=== PATIENT | female | born 1930 | race Caucasian/White ===

== ENCOUNTER 2017-03-09 03:15 | Inpatient (IN) | payer MEDICARE, BC ==
[2017-03-09] MEDS ORDERED: Sodium Chloride 0.9% 10 ML Syringe FLUSH PRN ×2 (03:19→15:18)
[2017-03-09] MEDS ORDERED: Diltiazem 25 MG/5 ML SDV IVPUSH ONE ×3 (03:38→04:18)
--- NOTE | 2017-03-09 03:39 | EDM.PDOC ---
ED HPI GENERAL MEDICAL PROBLEM - General Chief Complaint: Cardiovascular Problem Stated Complaint: roly ambulance Time Seen by Provider: 03/09/17 03:19 Source of Information: Reports: Patient, Family, RN Notes Reviewed - History of Present Illness INITIAL COMMENTS - FREE TEXT/NARRATIVE: 86-year-old female has been route in by ambulance for evaluation of chest discomfort. This started about 2 hours ago. She describes this as an anterior achy discomfort without radiation. The pain is somewhat worse with a deep respiration. She also has had a cough for about 2 days, nonproductive. She does have history of hypertension. No known history of coronary artery disease. She is not diabetic. She has no known history of asthma or COPD. She just flew out 2 -1/2 days ago from the [facility] to be here for upcoming of a brother that unexpectedly last week. Chest Pain Score (Numeric/FACES): 4 - Related Data Allergies Allergy/AdvReac Type Severity Reaction Status Date / Time No Known Allergies Allergy Verified 03/09/17 03:28 Home Meds: Home Meds Aspirin [Adult Low Dose Aspirin EC] 81 mg PO DAILY 03/09/17 [History] Rosuvastatin [Crestor] 20 mg PO DAILY 03/09/17 [History] Valsartan 320 mg PO DAILY 03/09/17 [History] amLODIPine [Norvasc] 10 mg PO DAILY 03/09/17 [History] ED ROS GENERAL - Review of Systems Review Of Systems: See Below Constitutional: Denies: Fever, Chills, Diaphoresis HEENT: Denies: Sinus Problem, Throat Pain Respiratory: Reports: Pleuritic Chest Pain, Cough. Denies: Shortness of Breath , Sputum Cardiovascular: Reports: Chest Pain (Now almost gone). Denies: Palpitations GI/Abdominal: Denies: Abdominal Pain, Nausea, Vomiting Musculoskeletal: Denies: Neck Pain, Shoulder Pain, Back Pain Skin: Reports: No Symptoms Neurological: Denies: Dizziness, Weakness ED EXAM, GENERAL - Physical Exam Exam: See Below General Appearance: Alert, No Apparent Distress Eye Exam: Bilateral Eye: PERRL Throat/Mouth: Normal Inspection, Normal Oropharynx Head: Atraumatic Neck: Supple, Full Range of Motion, Other Respiratory/Chest: No Respiratory Distress (No JVD), Lungs Clear, Normal Breath Sounds Cardiovascular: Irregularly Irregular GI/Abdominal: Soft, Non-Tender. No: Guarding Extremities: No: Pedal Edema, Leg Pain, Increased Warmth, Redness Neurological: Alert, Oriented, No Motor/Sensory Deficits Skin Exam: Warm, Dry, Normal Color EKG INTERPRETATION EKG Date: 03/09/17 Rhythm: a-fib Rate (beats/min): 124 [place]: normal P-wave: present QRS: normal ST-T: normal Course - Vital Signs Last Recorded V/S: Last Vital Signs Temp 98.5 F 03/09/17 03:22 Pulse 93 03/09/17 05:24 Resp 17 03/09/17 03:22 BP 122/83 03/09/17 05:24 Pulse Ox 96 03/09/17 05:24 - Orders/Labs/Meds Orders: Active Orders 24 hr Category Date Time Status EKG 12 Lead [EKG Documentation Completion] [RC] STAT Care 03/09/17 03:20 Active Peripheral IV Care [RC] . DIRECTED Care 03/09/17 03:20 Active Chest 1V Frontal [CR] Stat Exams 03/09/17 03:20 Taken Diltiazem 125 MG in Normal Saline @ 5 MG/HR(100ml) Med 03/09/17 07:15 Ordered Diltiazem 125 mg Sodium Chloride 0.9% [Normal Saline] 100 ml IV TITRATE Sodium Chloride 0.9% [Saline Flush] Med 03/09/17 03:19 Active 10 ml FLUSH ASDIRECTED PRN Peripheral IV Insertion Adult [OM.PC] Stat Oth 03/09/17 03:20 Ordered Medication Orders Diltiazem HCl 125 mg/ Sodium (Chloride) 125 mls @ 5 mls/hr IV TITRATE CARMEN; 5 MG /HR PRN Reason: Protocol Sodium Chloride (Saline Flush) 10 ml FLUSH ASDIRECTED PRN PRN Reason: Keep Vein Open Last Admin: 03/09/17 03:45 Dose: 10 ml Labs: Laboratory Tests 03/09/17 03/09/17 03/09/17 Range/Units 03:31 03:31 03:31 WBC 8.14 (3.98-10.04) K/mm3 RBC 3.97 L (3.98-5.22) M/mm3 Hgb 11.2 (11.2-15.7) gm/L Hct 34.0 L (34.1-44.9) % MCV 85.6 (79.4-94.8) fl MCH 28.2 (25.6-32.2) pg MCHC 32.9 (32.2-35.5) g/dl RDW Std Deviation 41.6 (36.4-46.3) fL Plt Count 188 (182-369) K/mm3 MPV 9.6 (9.4-12.3) fl Neut % (Auto) 77.4 H (34.0-71.1) % Lymph % (Auto) 10.2 L (19.3-51.7) % [place] % (Auto) 9.8 (4.7-12.5) % Eos % (Auto) 2.0 (0.7-5.8) Baso % (Auto) 0.4 (0.1-1.2) % Neut # (Auto) 6.30 H (1.56-6.13) K/mm3 Lymph # (Auto) 0.83 L (1.18-3.74) K/mm3 [place] # (Auto) 0.80 H (0.24-0.36) K/mm3 Eos # (Auto) 0.16 (0.04-0.36) K/mm3 Baso # (Auto) 0.03 (0.01-0.08) K/mm3 PT (8.0-13.0) SECONDS INR APTT (22-36) SECONDS Sodium 139 (136-145) mEq/L Potassium 3.6 (3.5-5.1) mEq/L Chloride 103 (98-107) mEq/L Carbon Dioxide 24 (21-32) mEq/L Anion Gap 15.6 H (5-15) BUN 20 H (7-18) mg/dL Creatinine 1.2 H (0.55-1.02) mg/dL Est Cr Clr Drug Dosing 30.92 mL/min Estimated GFR (MDRD) 42 (>60) mL/min BUN/Creatinine Ratio 16.7 (14-18) Glucose 111 (83-115) mg/dL Calcium 8.4 L (8.5-10.1) mg/dL Total Bilirubin 0.5 (0.2-1.0) mg/dL AST 20 (15-37) U/L ALT 22 (14-59) U/L Alkaline Phosphatase 83 (46-116) U/L Troponin I < 0.017 (0.00-0.056) ng/mL C-Reactive Protein (<1.0) mg/dL B-Natriuretic Peptide 555 H (0-100) pg/mL Total Protein 7.1 (6.4-8.2) g/dl Albumin 3.0 L (3.4-5.0) g/dl Globulin 4.1 gm/dL Albumin/Globulin Ratio 0.7 L (1-2) 03/09/17 03/09/17 03/09/17 Range/Units 03:31 03:31 03:31 WBC (3.98-10.04) K/mm3 RBC (3.98-5.22) M/mm3 Hgb (11.2-15.7) gm/L Hct (34.1-44.9) % MCV (79.4-94.8) fl MCH (25.6-32.2) pg MCHC (32.2-35.5) g/dl RDW Std Deviation (36.4-46.3) fL Plt Count (182-369) K/mm3 MPV (9.4-12.3) fl Neut % (Auto) (34.0-71.1) % Lymph % (Auto) (19.3-51.7) % [place] % (Auto) (4.7-12.5) % Eos % (Auto) (0.7-5.8) Baso % (Auto) (0.1-1.2) % Neut # (Auto) (1.56-6.13) K/mm3 Lymph # (Auto) (1.18-3.74) K/mm3 [place] # (Auto) (0.24-0.36) K/mm3 Eos # (Auto) (0.04-0.36) K/mm3 Baso # (Auto) (0.01-0.08) K/mm3 PT 10.5 (8.0-13.0) SECONDS INR 0.97 APTT 27 (22-36) SECONDS Sodium (136-145) mEq/L Potassium (3.5-5.1) mEq/L Chloride (98-107) mEq/L Carbon Dioxide (21-32) mEq/L Anion Gap (5-15) BUN (7-18) mg/dL Creatinine (0.55-1.02) mg/dL Est Cr Clr Drug Dosing mL/min Estimated GFR (MDRD) (>60) mL/min BUN/Creatinine Ratio (14-18) Glucose (83-115) mg/dL Calcium (8.5-10.1) mg/dL Total Bilirubin (0.2-1.0) mg/dL AST (15-37) U/L ALT (14-59) U/L Alkaline Phosphatase (46-116) U/L Troponin I (0.00-0.056) ng/mL C-Reactive Protein 4.3 H* (<1.0) mg/dL B-Natriuretic Peptide (0-100) pg/mL Total Protein (6.4-8.2) g/dl Albumin (3.4-5.0) g/dl Globulin gm/dL Albumin/Globulin Ratio (1-2) // Range/Units 05:40 WBC (3.98-10.04) K/mm3 RBC (3.98-5.22) M/mm3 Hgb (11.2-15.7) gm/L Hct (34.1-44.9) % MCV (79.4-94.8) fl MCH (25.6-32.2) pg MCHC (32.2-35.5) g/dl RDW Std Deviation (36.4-46.3) fL Plt Count (182-369) K/mm3 MPV (9.4-12.3) fl Neut % (Auto) (34.0-71.1) % Lymph % (Auto) (19.3-51.7) % [place] % (Auto) (4.7-12.5) % Eos % (Auto) (0.7-5.8) Baso % (Auto) (0.1-1.2) % Neut # (Auto) (1.56-6.13) K/mm3 Lymph # (Auto) (1.18-3.74) K/mm3 [place] # (Auto) (0.24-0.36) K/mm3 Eos # (Auto) (0.04-0.36) K/mm3 Baso # (Auto) (0.01-0.08) K/mm3 PT (8.0-13.0) SECONDS INR APTT (22-36) SECONDS Sodium (136-145) mEq/L Potassium (3.5-5.1) mEq/L Chloride (98-107) mEq/L Carbon Dioxide (21-32) mEq/L Anion Gap (5-15) BUN (7-18) mg/dL Creatinine (0.55-1.02) mg/dL Est Cr Clr Drug Dosing mL/min Estimated GFR (MDRD) (>60) mL/min BUN/Creatinine Ratio (14-18) Glucose (83-115) mg/dL Calcium (8.5-10.1) mg/dL Total Bilirubin (0.2-1.0) mg/dL AST (15-37) U/L ALT (14-59) U/L Alkaline Phosphatase (46-116) U/L Troponin I 0.025 (0.00-0.056) ng/mL C-Reactive Protein (<1.0) mg/dL B-Natriuretic Peptide (0-100) pg/mL Total Protein (6.4-8.2) g/dl Albumin (3.4-5.0) g/dl Globulin gm/dL Albumin/Globulin Ratio (1-2) Meds: Medications Generic Name Dose Route Start Last Admin Trade Name Freq PRN Reason Stop Dose Admin Diltiazem HCl 125 mg/ Sodium 125 mls @ 5 mls/hr 03/09/17 07:15 Chloride IV TITRATE CARMEN Protocol 5 MG/HR Sodium Chloride 10 ml 03/09/17 03:19 03/09/17 03:45 Saline Flush FLUSH 10 ml ASDIRECTED PRN Administration Keep Vein Open Discontinued Medications Generic Name Dose Route Start Last Admin Trade Name Freq PRN Reason Stop Dose Admin Diltiazem HCl 5 mg 03/09/17 03:38 03/09/17 03:44 Diltiazem IVPUSH 03/09/17 03:39 5 mg ONETIME ONE Administration Diltiazem HCl 5 mg 03/09/17 04:02 03/09/17 04:24 Diltiazem IVPUSH 03/09/17 04:03 5 mg ONETIME ONE Administration Diltiazem HCl 5 mg 03/09/17 04:18 03/09/17 05:16 Diltiazem IVPUSH 03/09/17 04:19 5 mg ONETIME ONE Administration Diltiazem HCl 60 mg 03/09/17 04:42 03/09/17 05:20 Cardizem PO 03/09/17 04:43 60 mg ONETIME ONE Administration Furosemide 20 mg 03/09/17 04:22 03/09/17 04:35 Lasix IVPUSH 03/09/17 04:23 20 mg NOW ONE Administration - Re-Assessments/Exams Free Text/Narrative Re-Assessment/Exam: 03/09/17 04:30. Patient does feel better, her chest discomfort is about gone. She states she still does feel slight anterior chest discomfort with deep breathing. She does have mild left sternal tenderness on exam. Her chest x-ray did show very slight pulmonary congestion. BNP mildly elevated at 555. Troponin was negative. We've given Lasix 20 mg IV. Have given a couple of doses of diltiazem 5 mg IV. I have been cautious with dosage considering that she has been on Norvasc for hypertension. This Has brought her rate down to the 100-105 range. We have no ICU beds available at this time so have not started a diltiazem drip. We have given diltiazem 60 mg orally. We'll do a repeat troponin after 2 hours. 03/09/17 06:45. Repeat show has gone up mildly to 0.025. This may be demand ischemia but does strengthen the case for admission. As I visit with her and her family there are multiple home related events today that are probably not in her best interest to attend with the new onset atrial fib, mild CHF. We'll start her on the diltiazem drip for continued rate control, serial enzymes and careful monitoring. She does needs [facility] criteria for inpatient status. Departure - Departure Time of Disposition: 07:00 Disposition: Admitted As Inpatient 65 Condition: fair Clinical Impression: Atrial fibrillation with rapid ventricular response Congestive heart failure Qualifiers: Congestive heart failure type: unspecified congestive heart failure type Congestive heart failure chronicity: acute Qualified Code(s): I50.9 - Heart failure, unspecified Forms: ED Department Discharge ED Communication - Discussed Case With (1) Discussed Case With (1): Admitting Provider (Dr. Garcia, decision to admit at about 07:00.) - My Orders Last 24 Hours: My Active Orders 03/09/17 03:19 Sodium Chloride 0.9% [Saline Flush] 10 ml FLUSH ASDIRECTED PRN 03/09/17 03:20 EKG 12 Lead [EKG Documentation Completion] [RC] STAT Peripheral IV Care [RC] . DIRECTED Chest 1V Frontal [CR] Stat Peripheral IV Insertion Adult [OM.PC] Stat 03/09/17 07:15 Diltiazem 125 MG in Normal Saline @ 5 MG/HR(100ml) Diltiazem 125 mg Sodium Chloride 0.9% [Normal Saline] 100 ml IV TITRATE - Assessment/Plan Last 24 Hours: My Active Orders 03/09/17 03:19 Sodium Chloride 0.9% [Saline Flush] 10 ml FLUSH ASDIRECTED PRN 03/09/17 03:20 EKG 12 Lead [EKG Documentation Completion] [RC] STAT Peripheral IV Care [RC] . DIRECTED Chest 1V Frontal [CR] Stat Peripheral IV Insertion Adult [OM.PC] Stat 03/09/17 07:15 Diltiazem 125 MG in Normal Saline @ 5 MG/HR(100ml) Diltiazem 125 mg Sodium Chloride 0.9% [Normal Saline] 100 ml IV TITRATE
[2017-03-09] MEDS ORDERED: Furosemide 40 MG/4 ML VIAL IVPUSH ONE (04:22)
[2017-03-09] MEDS ORDERED: Diltiazem IR 60 MG Tab PO ONE (04:42)
[2017-03-09] MEDS ORDERED: Diltiazem 125 MG in Sodium Chloride 0.9% 100 ML IV SCH (07:15)
--- NOTE | 2017-03-09 09:37 | CR ---
Chest: Portable view of the chest was obtained. Comparison: No previous chest x-ray. Heart is enlarged. Tortuous thoracic aorta is seen. Possible hiatal hernia is present. Lungs are clear with no acute infiltrates. Scoliosis present within the spine with scattered degenerative change. Impression: 1. Cardiomegaly and other incidental findings. Nothing acute is appreciated on portable chest x-ray. Diagnostic code #2
[2017-03-09] MEDS ORDERED: HYDROmorphone 0.5 MG/0.5 ML Syringe IVPUSH PRN (15:18)
[2017-03-09] MEDS ORDERED: Acetaminophen 325 MG Tab PO PRN (15:18)
[2017-03-09] MEDS ORDERED: Albuterol 0.083% 2.5 MG/3 ML Neb Soln NEB PRN (15:18)
[2017-03-09] MEDS ORDERED: Bisacodyl 5 MG Tab PO PRN (15:18)
[2017-03-09] MEDS ORDERED: Ondansetron 4 MG/2 ML SDV IV PRN (15:18)
[2017-03-09] MEDS ORDERED: Docusate Sodium 100 MG Cap PO PRN (15:18)
[2017-03-09] MEDS ORDERED: LORazepam 2 MG/ML MDV IV PRN (15:18)
[2017-03-09] MEDS ORDERED: Promethazine 6.25 MG in Sodium Chloride 0.9% 50 ML IV PRN (15:18)
[2017-03-09] MEDS ORDERED: Acetaminophen/HYDROcodone 325-5 MG Tab PO PRN (15:18)
--- NOTE | 2017-03-09 15:18 | PCM.HP ---
H&P History of Present Illness - General Date of Service: 03/09/17 Admit Problem/Dx: Atrial Fibrillation with RVR Source of Information: Family, Provider, RN History Limitations: Reports: No Limitations - History of Present Illness Initial Comments - Free Text/Narative: This is an 86 yo pleasant elderly white female with past medical hx/o HTN and HLD who comes in via ambulance with complaints of chest discomfort that started about 1 am this morning that is associated with non-productive cough. Her c/o is made worse with taking deep breaths. She reports a similar episode about ten days ago. Patient carries no hx/o CAD, Lung Disease or Malignant Cardiac Rhythm. She denies having any thyroid issues. Patient just just flew out 2-1/2 days ago from the [facility] to be here for upcoming of a brother that unexpectedly last week. Her initial work up in ED shows a CBC that fairly unremarkable. INR is 0.97. Her chemistry is significant for AG of 15.6, BUN of 20, Cr of 1.2, Ca of 8.4, CRP of 4.3, BNP of 555, and Albumin of 3.0. Her CXR shows no acute abnormal findings. Her EKG shows Atrial fibrillation with a HR of 124. Patient received initial treatment in ED for rate control before she was sent to the floor for further management. She is modified full code with CPR only. Chest Pain Score (Numeric/FACES): 4 - Related Data Allergies/Adverse Reactions: Allergies Allergy/AdvReac Type Severity Reaction Status Date / Time No Known Allergies Allergy Verified 03/09/17 03:28 Home Medications: Home Meds Aspirin [Adult Low Dose Aspirin EC] 81 mg PO DAILY 03/09/17 [History] Docusate Sodium [Colace] 50 mg PO DAILY PRN 03/09/17 [History] Rosuvastatin [Crestor] 20 mg PO DAILY 03/09/17 [History] Valsartan 320 mg PO DAILY 03/09/17 [History] amLODIPine [Norvasc] 10 mg PO DAILY 03/09/17 [History] Apixaban [Eliquis] 5 mg PO BID #60 tablet 03/10/17 [Rx] Diltiazem [Cardizem CD] 180 mg PO DAILY #30 cap.cd 03/10/17 [Rx] Magnesium Oxide 250 mg PO BIDM #10 tablet 03/10/17 [Rx] Past Medical History HEENT History: Reports: Cataract Cardiovascular History: Reports: Hypertension - Past Surgical History HEENT Surgical History: Reports: Tonsillectomy GI Surgical History: Reports: Cholecystectomy Female Surgical History: Reports: Hysterectomy Endocrine Surgical History: Reports: Thyroidectomy Social & Family History - Tobacco Use Smoking Status *Q: Never Smoker Second Hand Smoke Exposure: No - Caffeine Use Caffeine Use: Reports: Coffee Other Caffeine Use: 2-3 cups of coffe a day. but not for the last 10 dys - Recreational Drug Use Recreational Drug Use: No H&P Review of Systems - Review of Systems: Review Of Systems: See Below General: Denies: Fever, Malaise, Weakness, Night Sweats HEENT: Reports: No Symptoms Pulmonary: Reports: Cough Cardiovascular: Reports: Palpitations, Other (chest discomfort). Denies: Chest Pain, Dyspnea on Exertion, Orthopnea, PND, Lightheadedness, Syncope Gastrointestinal: Denies: Abdominal Pain, Bloody Stool, Nausea, Vomiting Genitourinary: Reports: No Symptoms Musculoskeletal: Reports: No Symptoms Skin: Denies: Cyanosis, Pallor, Diaphoresis, Rash Psychiatric: Denies: Confusion, Depression, Agitation, Hallucinations (Visual) Neurological: Denies: Confusion, Dizziness, Syncope, Weakness, Gait Disturbance Hematologic/Lymphatic: Reports: No Symptoms Immunologic: Reports: No Symptoms Exam - Exam Exam: See Below - Vital Signs Vital Signs: Last Vital Signs Temp 37.1 C 03/09/17 11:27 Pulse 89 03/09/17 11:27 Resp 20 03/09/17 11:27 BP 120/66 03/09/17 11:27 Pulse Ox 91 L 03/09/17 11:27 Weight: 65.68 kg - Exam Quality Assessment: No: Supplemental Oxygen General: Alert, Oriented, Cooperative. No: Mild Distress HEENT: Conjunctiva Clear, EACs Clear, EOMI, Hearing Intact, Mucosa Moist & [place] , Nares Patent, Normal Nasal Septum, Posterior Pharynx Clear, Pupils Equal, Pupils Reactive, TMs Clear Neck: Supple, Trachea Midline Lungs: Clear to Auscultation, Normal Respiratory Effort Cardiovascular: Irregular Rhythm, Other (Irregular rate) Abdomen: Normal Bowel Sounds, Soft. No: Organomegaly (Female) Exam: Deferred Rectal (Female) Exam: Deferred Back Exam: Normal Inspection, Decreased Range of Motion Extremities: Normal Inspection, Normal Pulses. No: Clubbing, Cyanosis, Calf Tenderness, Edema Peripheral Pulses: 2+: Posterior Tibial (L), Posterior Tibial (R), Dorsalis Pedis (L), Dorsalis Pedis (R) Skin: Warm, Dry, Intact Neuro Extensive - Mental Status: Oriented x3, Normal Cognition, Memory Intact Neuro Extensive - Motor, Sensory, Reflexes: CN II-XII Intact, Normal Gait Psychiatric: Alert, Normal Affect, Normal Mood - Patient Data Result Diagrams: 03/10/17 05:19 03/09/17 03:31 EKG INTERPRETATION EKG Date: 03/09/17 Rhythm: a-fib Rate (beats/min): 124 QRS: normal ST-T: normal Comparison: NA - no prior EKG *Q Meaningful Use (ADM) - VTE *Q VTE Criteria *Q: - Stroke *Q Stroke Criteria *Q: - AMI *Q AMI Criteria *Q: Problem List Initiated/Reviewed/Updated: Yes Orders Last 24hrs: Active Orders 24 hr Category Date Time Status Heart Healthy Diet [DIET] Diet 03/09/17 Dinner Active Medication Orders Diltiazem HCl 125 mg/ Sodium (Chloride) 125 mls @ 5 mls/hr IV TITRATE CARMEN; 5 MG /HR PRN Reason: Protocol Sodium Chloride (Saline Flush) 10 ml FLUSH ASDIRECTED PRN PRN Reason: Keep Vein Open Last Admin: 03/09/17 03:45 Dose: 10 ml Assessment/Plan Comment:: Assessment/Plan: Acute: New Onset of Atrial Fibrillation with RVR - HR in the 120s - Had similar episode in the past - It's possible this is PAF - Responded to [facility] - [id number] Score is 4 (4% Yearly Risk of Stroke) w/o Anticoagulation - Will offer Warfarin vs DOACs - No recent GI, Neurologic, Spinal or Any kind of Major Bleed - HAS BLED Score: 3 points (High risk for bleed) Elevated BNP - BNP 555 - Could not appreciate volume overload status - She denies any hx/o HF - Possible she may have HF with Reduced EF - ED echo and repeat level in am Chronic: HTN HLD Plan: Admit to Med-Surg W/ Tele Resume Home Meds PT/OT Thyroid Panel CE Q6 X 2 more SW/CM for d/c planning Code Status: CPR only
[2017-03-09] MEDS ORDERED: DOCUSATE SODIUM 50 MG PO PRN (15:31)
[2017-03-09] MEDS ORDERED: hydrALAZINE 20 MG/ML SDV IVPUSH PRN (15:33)
[2017-03-09] MEDS ORDERED: Metoprolol Tartrate 5 MG/5 ML SDV IVPUSH PRN (15:33)
[2017-03-09] MEDS ORDERED: Enoxaparin 30 MG/0.3 ML Syringe SUBCUT ONE (17:00)
[2017-03-09] MEDS: Potassium Chloride 20 MEQ Tab.ER PO SCH ×2 (17:22→21:03)
[2017-03-09] MEDS ORDERED: Rosuvastatin 10 MG Tab PO SCH (21:00)
[2017-03-09] MEDS ORDERED: amLODIPine 10 MG Tab PO SCH (21:00)
[2017-03-09] MEDS ORDERED: Dabigatran 75 MG Cap PO SCH (21:00)
[2017-03-09] MEDS ORDERED: Temazepam 7.5 MG Cap PO PRN (21:00)
[2017-03-09] MEDS: Apixaban 5 MG Tab PO SCH (21:03)
[2017-03-10] MEDS: Apixaban 5 MG Tab PO SCH ×2 (08:45→18:51)
[2017-03-10] MEDS ORDERED: Diltiazem 120 MG Cap.CD PO SCH (09:00)
[2017-03-10] MEDS ORDERED: Losartan 25 MG Tab PO SCH (09:00)
[2017-03-10] MEDS ORDERED: Aspirin 81 MG Tab.EC PO SCH (09:00)
[2017-03-10] MEDS ORDERED: Losartan 100 MG Tab PO SCH (09:00)
[2017-03-10] MEDS ORDERED: Magnesium Sulfate/Water 2 GM in Premix Bag 1 BAG IV ONE (10:30)
--- NOTE | 2017-03-10 13:19 | PCM.DCSUM1 ---
Discharge Summary - Hospital Course Brief History: This is an 86 yo pleasant elderly white female with past medical hx/o HTN and HLD who comes in via ambulance with complaints of chest discomfort associated with non-productive cough and was found to be in Atrial Fibrillation with RVR. - Discharge Data Discharge Date: 03/17/17 Discharge Disposition: Home, Self-Care 01 Condition: Good - Discharge Diagnosis/Problem(s) (1) Atrial fibrillation with rapid ventricular response SNOMED Code(s): 414610157992777 ICD Code: I48.91 - UNSPECIFIED ATRIAL FIBRILLATION Status: Resolved (2) New onset a-fib SNOMED Code(s): 24088422 ICD Code: I48.91 - UNSPECIFIED ATRIAL FIBRILLATION Status: Acute (3) HTN (hypertension) SNOMED Code(s): 89062837 ICD Code: I10 - ESSENTIAL (PRIMARY) HYPERTENSION Status: Chronic Qualifiers: Qualified Code(s): I10 - Essential (primary) hypertension (4) HLD (hyperlipidemia) SNOMED Code(s): 68865703 ICD Code: E78.5 - HYPERLIPIDEMIA, UNSPECIFIED Status: Chronic Qualifiers: Qualified Code(s): E78.5 - Hyperlipidemia, unspecified - Patient Summary/Data Operative Procedure(s) Performed: None Complications: None Consults: Consultations 03/09/17 15:18 Consult to Case Management [CONS] Routine Consult to Chronic Manager [CONS] Routine Consult to Spiritual Care [CONS] Routine OT Evaluation and Treatment [CONS] Routine PT Evaluation and Treatment [CONS] Routine Recommended Follow-up Testing/Procedures: BMP and Mg next week for Electrolyte Abnormality Hospital Course: Discharge Summary Per Problem List: New Onset of Atrial Fibrillation with RVR - Unclear in etiology: No IA and HF, possibly stress induced - No resolved, HR is now well controlled - HR in the 120s on admission - Had similar episode in the past - Given she had similar episode 10 days ago, it's possible this is PAF - Responded to [facility] well, she will be discharged with Cardizem 180 mg po Daily - [id number] Score is 4 (4% Yearly Risk of Stroke) w/o Anticoagulation - Offered Warfarin vs DOACs, selected Eliquis 5 mg po BID - No recent GI, Neurologic, Spinal or Any kind of Major Bleed - No reported ADR with Eliquis - HAS BLED Score: 3 points (High risk for bleed), recommend close monitoring by PCP as she is also on ASA Elevated BNP - BNP 555--> repeat level 390 - Could not appreciate volume overload status on admission - She denied any hx/o HF - 2D echo: LVEF 65-70%, Mild valvular cardiac dysfunction. - Patient has no Heart failure Hypomagnesemia - Mg 1.7 - Received 2grams IV of Mag-Sulfate - Mag-Ox 250 mg po BID for 10 days - Follow up BMP and Mg next week Chronic: HTN, Stable HLD, Stable Overall, Mrs. Rutherford has done well since admission. Her hospital course was uncomplicated. Her HR is now fully controlled. Given that she is on combination ASA and Eliquis, she will be at high risk for bleed and therefore we defer to PCP for further monitoring. Patient was advised to follow up with her PCP in 1 week. She is to have a repeat lab next week. Patient expressed understanding and in agreement with the plans as discussed above. All questions were answered. - Patient Instructions Diet: Usual Diet as Tolerated Activity: As Tolerated Driving: Do Not Drive Notify Provider of: Fever, Increased Pain, Swelling and Redness, Drainage, Nausea and/or Vomiting Other/Special Instructions: - Please take all medications as directed. - Follow up with your doctor in 1-2 week. - Call your doctor inf you have any questions or concerns - Discharge Plan Prescriptions/Med Rec: Apixaban [Eliquis] 5 mg PO BID #60 tablet Diltiazem [Cardizem CD] 180 mg PO DAILY #30 cap.cd Magnesium Oxide 250 mg PO BIDM #10 tablet Home Medications: Home Meds Aspirin [Adult Low Dose Aspirin EC] 81 mg PO DAILY 03/09/17 [History] Docusate Sodium [Colace] 50 mg PO DAILY PRN 03/09/17 [History] Rosuvastatin [Crestor] 20 mg PO DAILY 03/09/17 [History] Valsartan 320 mg PO DAILY 03/09/17 [History] amLODIPine [Norvasc] 10 mg PO DAILY 03/09/17 [History] Apixaban [Eliquis] 5 mg PO BID #60 tablet 03/10/17 [Rx] Diltiazem [Cardizem CD] 180 mg PO DAILY #30 cap.cd 03/10/17 [Rx] Magnesium Oxide 250 mg PO BIDM #10 tablet 03/10/17 [Rx] Patient Handouts: Apixaban oral tablets, Atrial Fibrillation, [id number] Referrals: PCP,Not In Area [Primary Care Provider] - - Discharge Summary/Plan Comment DC Time >30 min.: Yes (45 mins) Discharge Summary/Plan Comment: Discharge to Home - General Info Date of Service: 03/10/17 Admission Dx/Problem (Free Text: Atrial Fibrillation with RVR Subjective Update: Follow Up Functional Status: Reports: pain controlled, tolerating diet, ambulating, urinating. Denies: new symptoms - Review of Systems General: Denies: Fever, Chills HEENT: Reports: no symptoms Pulmonary: Denies: shortness of breath Cardiovascular: Denies: Chest Pain, Palpitations, Dyspnea on Exertion, Lightheadedness Gastrointestinal: Denies: Abdominal pain, Nausea, Vomiting Genitourinary: Reports: no symptoms Musculoskeletal: Reports: no symptoms Skin: Reports: no symptoms Neurological: Denies: Dizziness, Difficulty Walking, Weakness Psychiatric: Denies: confusion, depression, anxiety, agitation Systems Review Comment: No overnight or acute issues. She is doing relatively well. She has no new complaints. No side effects reported after she received eliquis last night. Her HR has been well controlled with oral cardizem. HR however increased with activity. - Patient Data Vitals - Most Recent: Last Vital Signs Temp 37.5 C 03/10/17 12:20 Pulse 93 03/10/17 12:20 Resp 16 03/10/17 12:20 BP 124/70 03/10/17 12:20 Pulse Ox 92 L 03/10/17 12:20 Weight - Most Recent: 65.68 kg I&O - Last 24 hours: Intake & Output 03/09/17 03/10/17 03/10/17 22:59 06:59 14:59 Intake Total 450 675 120 Balance 450 675 120 Lab Results - Last 24 hrs: Laboratory Results - last 24 hr 03/10/17 03/10/17 03/10/17 Range/Units 05:19 05:19 05:19 WBC 8.02 (3.98-10.04) K/mm3 RBC 3.68 L (3.98-5.22) M/mm3 Hgb 10.3 L (11.2-15.7) gm/L Hct 32.0 L (34.1-44.9) % MCV 87.0 (79.4-94.8) fl MCH 28.0 (25.6-32.2) pg MCHC 32.2 (32.2-35.5) g/dl RDW Std Deviation 42.0 (36.4-46.3) fL Plt Count 205 (182-369) K/mm3 MPV 9.9 (9.4-12.3) fl Neut % (Auto) 74.8 H (34.0-71.1) % Lymph % (Auto) 10.6 L (19.3-51.7) % Sawyer % (Auto) 12.8 H (4.7-12.5) % Eos % (Auto) 1.4 (0.7-5.8) Baso % (Auto) 0.2 (0.1-1.2) % Neut # (Auto) 5.99 (1.56-6.13) K/mm3 Lymph # (Auto) 0.85 L (1.18-3.74) K/mm3 Sawyer # (Auto) 1.03 H (0.24-0.36) K/mm3 Eos # (Auto) 0.11 (0.04-0.36) K/mm3 Baso # (Auto) 0.02 (0.01-0.08) K/mm3 Magnesium 1.7 L (1.8-2.4) mg/dl CK-MB (CK-2) < 0.5 (0-3.6) ng/ml Troponin I < 0.017 (0.00-0.056) ng/mL B-Natriuretic Peptide 390 H (0-100) pg/mL Free T4 1.10 (0.76-1.46) ng/dL TSH 3rd Generation 1.594 (0.358-3.74) uIU/mL Med Orders - Current: Current Medications Acetaminophen (Tylenol) 650 mg PO Q4H PRN PRN Reason: Pain (Mild 1-3)/fever Hydrocodone Bitart/Acetaminophen ([place] 325-5 Mg) 1 tab PO Q4H PRN PRN Reason: Pain (moderate 4-6) Albuterol (Proventil Neb Soln) 2.5 mg NEB Q2H PRN PRN Reason: Shortness Of Breath/wheezing Amlodipine Besylate (Norvasc) 10 mg PO BEDTIME CARMEN Last Admin: 03/09/17 21:04 Dose: 10 mg Apixaban (Eliquis) 5 mg PO BID [facility] Last Admin: 03/10/17 08:45 Dose: 5 mg Aspirin (Halfprin) 81 mg PO DAILY [facility] Last Admin: 03/10/17 08:45 Dose: 81 mg Bisacodyl (Dulcolax) 5 mg PO DAILY PRN PRN Reason: Constipation Diltiazem HCl (Cardizem Cd) 120 mg PO DAILY [facility] Last Admin: 03/10/17 08:45 Dose: 120 mg Docusate Sodium (Colace) 100 mg PO BID PRN PRN Reason: Constipation Hydralazine HCl (Apresoline) 15 mg IVPUSH Q4H PRN PRN Reason: Hypertension Hydromorphone HCl (Dilaudid) 0.25 mg IVPUSH Q2H PRN PRN Reason: Pain (severe 7-10) Diltiazem HCl 125 mg/ Sodium (Chloride) 125 mls @ 5 mls/hr IV TITRATE CARMEN; 5 MG /HR PRN Reason: Protocol Promethazine HCl 6.25 mg/ (Sodium Chloride) 50.25 mls @ 100 mls/hr IV Q6H PRN PRN Reason: Nausea/Vomiting Lorazepam (Ativan) 0.5 mg IV Q6H PRN PRN Reason: Anxiety Losartan Potassium (Cozaar) 100 mg PO DAILY [facility] Last Admin: 03/10/17 08:45 Dose: 100 mg Losartan Potassium (Cozaar) 50 mg PO DAILY [facility] Last Admin: 03/10/17 08:45 Dose: 50 mg Magnesium Sulfate (Pharmacy To Dose - Magnesium Replacement) 0 dose .XX ASDIRECTED PRN PRN Reason: RX TO MONITOR MAGNESIUM LEVELS Metoprolol Tartrate (Lopressor) 5 mg IVPUSH Q4H PRN PRN Reason: Tachycardia Ondansetron HCl (Zofran) 4 mg IV Q6H PRN PRN Reason: Nausea/Vomiting Docusate Sodium 50 (Mg) 0 each PO DAILY PRN PRN Reason: Constipation Potassium Chloride (Pharmacy To Dose - Potassium Replacement) 0 dose .XX ASDIRECTED PRN PRN Reason: RX TO MONITOR K LEVELS Rosuvastatin Calcium (Crestor) 20 mg PO BEDTIME [facility] Last Admin: 03/09/17 21:03 Dose: 20 mg Senna/Docusate Sodium (Senna Plus) 1 tab PO BID PRN PRN Reason: Constipation Sodium Chloride (Saline Flush) 10 ml FLUSH ASDIRECTED PRN PRN Reason: Keep Vein Open Temazepam (Restoril) 7.5 mg PO BEDTIME PRN PRN Reason: Sleep Discontinued Medications Diltiazem HCl (Diltiazem) 5 mg IVPUSH ONETIME ONE Stop: 03/09/17 03:39 Last Admin: 03/09/17 03:44 Dose: 5 mg Diltiazem HCl (Diltiazem) 5 mg IVPUSH ONETIME ONE Stop: 03/09/17 04:03 Last Admin: 03/09/17 04:24 Dose: 5 mg Diltiazem HCl (Diltiazem) 5 mg IVPUSH ONETIME ONE Stop: 03/09/17 04:19 Last Admin: 03/09/17 05:16 Dose: 5 mg Diltiazem HCl (Cardizem) 60 mg PO ONETIME ONE Stop: 03/09/17 04:43 Last Admin: 03/09/17 05:20 Dose: 60 mg Enoxaparin Sodium (Lovenox) 30 mg SUBCUT ONETIME ONE Stop: 03/09/17 17:01 Last Admin: 03/09/17 17:23 Dose: 30 mg Furosemide (Lasix) 20 mg IVPUSH NOW ONE Stop: 03/09/17 04:23 Last Admin: 03/09/17 04:35 Dose: 20 mg Magnesium Sulfate 2 gm/ Premix 50 mls @ 25 mls/hr IV ONETIME ONE Stop: 03/10/17 12:29 Last Admin: 03/10/17 09:43 Dose: 25 mls/hr Potassium Chloride (Klor-Con M20) 40 meq PO Q4H CARMEN Stop: 03/09/17 22:01 Last Admin: 03/09/17 21:03 Dose: 40 meq Sodium Chloride (Saline Flush) 10 ml FLUSH ASDIRECTED PRN PRN Reason: Keep Vein Open Last Admin: 03/09/17 03:45 Dose: 10 ml - Exam General: Reports: alert, oriented, cooperative, no acute distress HEENT: Reports: Pupils equal, Pupils reactive, EOMI, Mucous membr. moist/pink Neck: Reports: supple, trachea midline, no JVD, no thyromegaly Lungs: Reports: Clear to auscultation, Normal respiratory effort Cardiovascular: Reports: Irregular Rhythm Abdomen: Reports: bowel sounds present, soft, no tenderness, no distension (Female) Exam: Deferred Rectal (Female) Exam: Deferred Back Exam: Reports: Normal Inspection, Decreased Range of Motion Extremities: Reports: no edema, normal pulses, no tenderness/swelling, no clubbing, no cyanosis, no calf tenderness Skin: Reports: warm, dry, intact Neurological: Reports: no new focal deficit Psy/Mental Status: Reports: alert, normal affect, normal mood *Q Meaningful Use (DIS) - VTE *Q VTE Criteria *Q: - Stroke *Q Stroke Criteria *Q: - AMI *Q AMI Criteria *Q:
[2017-03-10 15:44] VITALS: BP 112/65
[2017-03-11] MEDS ORDERED: Magnesium Oxide 400 MG Tab PO SCH (09:00)
== END 2017-03-10 19:22 | disposition home or self-care (01) | DRG 310 ==
LOC: JD.ED 03:15 → JD.MS 07:15 → UNDOADMIN 10:24 → UNDODISIN 03-10 19:22
PROVIDERS: ADMIT Internal Medicine; ATTEND Internal Medicine
DX: I48.91 Unspecified atrial fibrillation (principal); I11.0 Hypertensive heart disease with heart failure; I50.9 Heart failure, unspecified; R79.89 Other specified abnormal findings of blood chemistry; E83.42 Hypomagnesemia; I10 Essential (primary) hypertension; E78.5 Hyperlipidemia, unspecified; Z79.82 Long term (current) use of aspirin; Z79.899 Other long term (current) drug therapy
CPT/HCPCS: 36415; 71010; 80053; 83880; 84484 ×2; 85025; 85610; 85730; 86140; 93005; 96374; 96375; 96376; 99285; A9270; J1940; J7050; 82553; 83735; 84439; 84443; 93306; 97161-GP; 97165-GO; 99284; J1650; J3475; J3490